=== PATIENT | male | born 1965 | race American Indian/Alaskan Native ===

== ENCOUNTER 2021-08-08 16:43 | Emergency (ER) | payer SELFPAY ==
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
[2021-08-08 19:45] VITALS: BP 145/74
== END 2021-08-08 19:50 | disposition home or self-care (01) ==
LOC: ED 16:43
DX: M54.16 Radiculopathy, lumbar region (principal); M79.604 Pain in right leg
CPT/HCPCS: 99282